=== PATIENT | male | born 1985 | race Asian ===

== ENCOUNTER 2020-04-09 11:51 | Emergency (ER) | payer SELFPAY ==
[~2020-04-09] VITALS: Ht 167.6 cm; Wt 72.6 kg
[2020-04-09 12:38] VITALS: BP 158/108
== END 2020-04-09 13:07 | disposition home or self-care (01) ==
LOC: ER 11:54
DX: R00.2 Palpitations (principal); F41.9 Anxiety disorder, unspecified; R00.0 Tachycardia, unspecified